=== PATIENT | male | born 1960 | race Caucasian/White ===

== ENCOUNTER → 2017-06-13 | Outpatient (CLI) | payer OTHER ==
[2017-06-13 17:32] LABS: Basophils % (A) 1 %; CH 32.5; CHCM 33.9; Eosinophils # (A) 0.2 k/uL (0-0.7); Eosinophils % (A) 5 %; HCT 46.3 % (39.0-53.0); HDW 2.45; HGB 15.8 gm/dL (13.0-17.5); Luc # (Auto) 0.11; Luc % (Auto) 2; Lymphocytes # (A) 1.1 k/uL (1.0-4.8); Lymphocytes % (A) 23 %; MCH 32.9 pg (25.0-35.0); MCHC 34.1 g/dL (31.0-37.0); MCV 96.4 fL (80.0-100.0); Mean Platelet Volume 6.9; Monocytes # (A) 0.3 k/uL (0-1.0); Monocytes % (A) 7 %; Neutrophils # (A) 2.9 k/uL (1.3-7.7); Neutrophils % (A) 62 %; RDW 13.1 % (11.5-15.5); WBC 4.7 k/uL (3.8-10.6); WBC (Perox) 4.77
[2017-06-13 17:38] LABS: Calcium 9.3 mg/dL (8.4-10.2); Potassium 4.6 mmol/L (3.5-5.1); Uric Acid 7.2 mg/dL (3.5-8.5)
== END | disposition home or self-care (01) ==
LOC: LABWHC1 16:42
PROVIDERS: ATTEND Nurse Practitioner Family
DX: M10.9 Gout, unspecified (principal); N39.0 Urinary tract infection, site not specified; D63.1 Anemia in chronic kidney disease; N18.3 Chronic kidney disease, stage 3 (moderate); E83.39 Other disorders of phosphorus metabolism
CPT/HCPCS: 36415; 80048; 82306; 82570; 83970; 84156; 84550; 85025

== ENCOUNTER 2017-11-07 07:25 | Day surgery (SDC) | payer OTHER ==
[2017-11-02 16:07] VITALS: BMI 29.9
[~2017-11-07 07:25] MED LIST: LACTATED RINGERS 1,000 ML IV SCH
[2017-11-07 07:41] VITALS: RESP 18; TEMP 97.9
[2017-11-07] MEDS ORDERED: LACTATED RINGERS 1,000 ML IV ONE ×2 (07:43)
[2017-11-07] MEDS ORDERED: PROPOFOL 10 MG/ML 20 ML VIAL IV ONE (08:08)
--- NOTE | 2017-11-07 08:42 | P.PCN ---
Date of Procedure: 11/07/17 Procedure(s) Performed: Procedure: Total colonoscopy. Preoperative diagnosis: Screening for neoplasia. Postoperative diagnosis: Diverticulosis with no evidence of acute diverticulitis , strictures, polyps or cancer. Preparation HalfLytely prep. Sedation: Was provided by anesthesia. Brief clinical history: The patient is a 57-year-old male who is scheduled for this evaluation for screening for neoplasia age being his risk factor. He had a prior exam more than 10 years ago. The patient has no abdominal complaints, bleeding or anemia. Procedure: With the patient on his left lateral decubitus position and after informed consent and adequate sedation, the perianal area was inspected and it did not show any fissures or fistulas. There were no masses felt on digital rectal examination. The Olympus CFQ 160L video colonoscope was then inserted in the rectum in the usual fashion and advanced to the cecum. There were multiple diverticular orifices seen scattered mostly on the left side with few around the hepatic flexure and on the right side but no evidence of acute diverticulitis or strictures. The mucosa appeared healthy. No polyps or tumors were seen. I retroflexed the endoscope in the rectum before the endoscope was withdrawn. The patient tolerated the procedure well. Plan: The patient was reassured. Discussed dietary measures. He will follow up with you as planned and I recommended repeat exam in 10 years.
[2017-11-07 09:15] VITALS: BP 125/77; PULSE 75
== END 2017-11-07 09:23 | disposition home or self-care (01) ==
LOC: ORWHC2ENDO 07:25
DX: Z12.11 Encounter for screening for malignant neoplasm of colon (principal); K57.30 Diverticulosis of large intestine without perforation or abscess without bleeding; I10 Essential (primary) hypertension; E78.5 Hyperlipidemia, unspecified; K21.9 Gastro-esophageal reflux disease without esophagitis; M19.90 Unspecified osteoarthritis, unspecified site; Z79.899 Other long term (current) drug therapy
CPT/HCPCS: J2704; G0121

== ENCOUNTER → 2019-08-24 | Outpatient (CLI) | payer OTHER ==
--- NOTE | 2019-08-24 18:04 | US ---
EXAMINATION TYPE: US kidneys/renal and bladder DATE OF EXAM: 08/24/2019 COMPARISON: NONE CLINICAL HISTORY: I12.9 Hypertensive chronic kidney disease. CKD, left kidney removed 2013 EXAM MEASUREMENTS: Right Kidney: 11.5 x 5.9 x 5.6 cm Right Kidney: 3.0 x 2.0 x 2.8cm complex area inferior pole Left Kidney: surgically absent Bladder: wnl Bilateral Jets seen: right jet seen No hydronephrosis or nephrolithiasis. Bladder has a normal appearance. IMPRESSION: There is a 3 cm complex area involving the lower pole of the right kidney which MRI scan is recommend ed underlying neoplasm not excluded.
== END | disposition home or self-care (01) ==
LOC: RADUSWWP 15:55
PROVIDERS: ATTEND Internal Medicine Nephrology
DX: R93.421 Abnormal radiologic findings on diagnostic imaging of right kidney (principal)
CPT/HCPCS: 76770

== ENCOUNTER → 2019-08-25 | Outpatient (CLI) | payer OTHER ==
[2019-08-25 09:10] LABS: Appearance,Urine Clear (Clear); Bilirubin,Urine Negative (Negative); Blood,Urine Negative (Negative); Color,Urine Yellow; Glucose,Urine (UA) Negative (Negative); Ketones,Urine Negative (Negative); Leukocyte Esterase,Urine Negative (Negative); Nitrite,Urine Negative (Negative); Protein,Urine Negative (Negative); Specific Gravity,Urine 1.015 (1.001-1.035); Urobilinogen,Urine <2.0 mg/dL (<2.0)
[2019-08-25 09:15] LABS: Basophils % (A) 1 %; Eosinophils # (A) 0.3 k/uL (0-0.7); Eosinophils % (A) 10 %; HCT 45.7 % (39.0-53.0); Lymphocytes # (A) 0.9 k/uL (1.0-4.8); Lymphocytes % (A) 26 %; MCH 32.6 pg (25.0-35.0); MCHC 35.1 g/dL (31.0-37.0); MCV 92.9 fL (80.0-100.0); Mean Platelet Volume 7.2; Monocytes # (A) 0.2 k/uL (0-1.0); Monocytes % (A) 7 %; Neutrophils # (A) 1.8 k/uL (1.3-7.7); Neutrophils % (A) 53 %; Platelet Count 157 k/uL (150-450); RBC 4.92 m/uL (4.30-5.90); RDW 12.4 % (11.5-15.5); WBC 3.3 k/uL (3.8-10.6)
[2019-08-25 17:21] LABS: Ferritin 78.8 ng/mL (22.0-322.0)
[2019-08-25 17:32] LABS: % Iron Saturation 54.33 (15.00-50.00); African American GFR (CKD) 57.4 (60.0-200.0); Albumin/Globulin Ratio 1.74 (1.60-3.17); Anion Gap 5.1 mmol/L (4.00-12.00); BUN/Creat Ratio 10.67 Ratio (12.00-20.00); Calcium 9.1 mg/dL (8.7-10.3); Carbon Dioxide 28.9 mmol/L (21.6-31.8); Chol/HDL Ratio 3.82; Globulin 2.3 g/dL (1.6-3.3); LDL Cholesterol,Calculated 83.2 mg/dL (0.0-131.0); Magnesium 1.8 mg/dL (1.5-2.4); Non-African American GFR(CKD) 49.5 (60.0-200.0); Phosphorus 3.3 mg/dL (2.4-5.1); Potassium 4.2 mmol/L (3.5-5.5); Total Bilirubin 0.7 mg/dL (0.3-1.2); Total Protein 6.3 g/dL (6.2-8.2); Uric Acid 7.6 mg/dL (3.7-8.7); VLDL Calculation 23.8 mg/dL (5.00-40.00)
[2019-08-25 18:41] LABS: Hemoglobin A1C 5.6 % (4.0-6.0)
== END | disposition home or self-care (01) ==
LOC: LABWHC1 08:04
PROVIDERS: ATTEND Nurse Practitioner Family
DX: Z00.00 Encounter for general adult medical examination without abnormal findings (principal)
CPT/HCPCS: 36415; 80053; 80061; 81003; 82306; 82728; 83036; 83540; 83550; 83735; 83970; 84100; 84153; 84550; 85025

== ENCOUNTER → 2019-11-02 | Outpatient (CLI) | payer OTHER | END | disposition home or self-care (01) | LOC: RADMRIMAIN 16:38 | PROVIDERS: ATTEND Urology | DX: Z53.9 Procedure and treatment not carried out, unspecified reason (principal) ==

== ENCOUNTER → 2023-09-05 | Outpatient (CLI) | payer MEDICARE ==
--- NOTE | 2023-09-09 17:52 | MR ---
EXAMINATION TYPE: MR knee RT wo con DATE OF EXAM: 09/05/2023 COMPARISON: Outside radiograph 08/30/2023 HISTORY: 63-year-old male M25.561, right outer knee pain for two weeks after carrying heavy object TECHNIQUE: Multiplanar, multisequence imaging of the right knee is performed without IV contrast. FINDINGS: The ACL, PCL, and MCL are intact. Some heterogeneity to the femoral attachment of the LCL proper. Additional inhomogeneous signal of th e popliteus tendon. LCL complex otherwise intact. There is a through thickness posterior root tear of the medial meniscus with oblique tear extending t hroughout the posterior horn to the junction with the medial meniscal body. Meniscal cysts at the pos terior root insertion measuring up to 6 mm and some reactive bone marrow edema within the tibia. There is a subtle cartilage fissure along the mid weightbearing aspect of the medial femoral condyle articular cartilage, sagittal image 11 and 12 but otherwise overall preserved medial compartment kuldip cular cartilage volume. There is a partially discoid lateral meniscus which remains intact. Overall lateral compartment artic ular cartilage volume is maintained. Moderate irregular cartilage loss along the medial trochlear facet with subchondral cystic change. Mi ld irregular cartilage thinning along the mid patellar articular cartilage. Mild anterior soft tissue swelling. Extensive mechanism is intact. Yktzg-jr-mzjerbhc knee joint effus ion and mild chronic synovitis. No sizable Clarke's cyst. Normal popliteal artery anatomy and muscle bulk. No suspicious bone marrow replacement. IMPRESSION: 1. Through thickness posterior root tear of the medial meniscus with an oblique tear extending throug hout the posterior horn to the junction with the medial meniscal body. Reactive osseous edema at the root insertion. 2. Grade 1 sprain femoral attachment of the LCL proper and mild contusion of the popliteus tendon. 3. Mild patellofemoral compartmental OA. 4. Suspect a subtle nondisplaced cartilage fissure/cartilage flap along the mid weightbearing aspect of the medial femoral condyle articular cartilage. 5. Nfzrq-mj-fknnlolt knee joint effusion with mild chronic synovitis.
== END | disposition home or self-care (01) ==
LOC: RADMRIMAIN 07:03
PROVIDERS: ATTEND Orthopaedic Surgery
DX: M23.321 Other meniscus derangements, posterior horn of medial meniscus, right knee (principal); M17.11 Unilateral primary osteoarthritis, right knee; M23.641 Other spontaneous disruption of lateral collateral ligament of right knee; M25.461 Effusion, right knee; M67.863 Other specified disorders of tendon, right knee; M67.861 Other specified disorders of synovium, right knee

== ENCOUNTER 2023-10-19 07:49 | Day surgery (SDC) | payer MEDICARE ==
[2023-10-12 16:11] VITALS: BMI 32.3
--- NOTE | 2023-10-18 21:25 | HP ---
HISTORY AND PHYSICAL DATE OF SURGERY: 10/19/2023. HISTORY OF PRESENT ILLNESS: Giuliano Swain is a 63-year-old gentleman seen with progressive right knee pain. We discussed options regarding treatment. He elected to proceed with right knee arthroscopy. Consent was obtained. PAST MEDICAL HISTORY: Hyperlipidemia, hypertension, gastroesophageal reflux disease. PAST SURGICAL HISTORY: Kidney surgery. DAILY MEDICATIONS: 1. Amlodipine. 2. Lisinopril. 3. Omeprazole. 4. Simvastatin. 5. Tylenol. ALLERGIES: None. SOCIAL HISTORY: Denies tobacco use. PHYSICAL EVALUATION OF THE RIGHT KNEE: Range of motion is 0 to 130 degrees. Mild effusion. Tenderness, medial joint line. Crepitus, medial patellofemoral compartments with range of motion. Pain with patellofemoral compression. IMAGING STUDIES: X-rays of the right knee revealed mild osteoarthritis. MRI of right knee revealed medial meniscal tear, osteochondral defect of the medial femoral condyle and effusion. IMPRESSION: 1. Internal derangement of right knee with medial meniscal tear. 2. Right knee medial femoral condyle osteochondral tear/defect. 3. Hypertension. 4. Hyperlipidemia. 5. Gastroesophageal reflux disease. PLAN: Right knee arthroscopy with partial medial meniscectomy, microfracture medial femoral condyle and debridement. MMODL / IJN: [id number] /
[~2023-10-19 07:49] MED LIST changes: +DEXAMETHASONE SOD PHOSPHATE 4 MG/ML 1 ML VIAL IV ONE; +HYDROmorphone 0.5 MG/0.5 ML SYRINGE IVP PRN; +ONDANSETRON 4 MG/2 ML VIAL IVP ONE
[2023-10-19] MEDS ORDERED: HYDROmorphone (PF) 1 MG/ML ONE (09:37)
[2023-10-19] MEDS ORDERED: KETOROLAC 15 MG/ML 1 ML VIAL ONE (09:37)
[2023-10-19] MEDS ORDERED: LIDOCAINE 1% INJ 10MG/ML (20 ML MDV) ONE (09:37)
[2023-10-19] MEDS ORDERED: MIDAZOLAM 2 MG/2 ML VIAL ONE (09:37)
[2023-10-19] MEDS ORDERED: PROPOFOL 10 MG/ML 20 ML VIAL IV ONE (09:37)
[2023-10-19] MEDS ORDERED: fentaNYL (PF) 50 MCG/ML 2 ML AMP ONE (09:37)
[2023-10-19] MEDS ORDERED: BUPIVACAINE (PF) 0.25% 30 ML VIAL SQ ONE ×2 (09:58→10:12)
--- NOTE | 2023-10-19 10:28 | P.OP ---
Date of Procedure: 10/19/23 Preoperative Diagnosis: Internal derangement right knee Postoperative Diagnosis: 1. Tear medial and lateral meniscus right knee 2. Grade IV chondromalacia medial femoral condyle right knee 3. Grade II/III chondromalacia patella right knee 4. Reactive synovitis medial, lateral and suprapatellar compartments right knee Procedure(s) Performed: 1. Arthroscopic partial medial and lateral meniscectomy right knee 2. Arthroscopic microfracture medial femoral condyle right knee 3. Arthroscopic partial synovectomy medial, lateral and suprapatellar compartments right knee 4. Arthroscopic chondroplasty medial femoral condyle right knee 5. Arthroscopic chondroplasty patella right knee Anesthesia: AVRILA, local Surgeon: Mike Wolfe Estimated Blood Loss (ml): 5 Pathology: none sent Condition: stable Disposition: PACU Indications for Procedure: 63-year-old gentleman who was seen with progressive right knee pain. After treatment options were discussed, he elected to proceed with arthroscopy. Operative Findings: See description of procedure Description of Procedure: Patient was taken to the operative suite. Patient underwent a general anesthetic by the department of anesthesia. Patient was given preoperative an tibiotics. The right lower extremity was placed in a well-padded arthroscopic leg he. The right leg was prepped and draped in the normal sterile orthopedic fashion. A lateral parapatellar and suprapatellar incision was made. Trochars were inserted. Arthroscopy was initiated. Suprapatellar pouch revealed diffuse thick reactive synovitis. The patellofemoral joint appeared to articular congruently. There was grade II/III chondromalacia of the patella with some osteochondral flap tears present. The scope was guided into the medial gutter. No loose bodies or plica were identified. The scope was then guided into the medial compartment. A medial parapatellar incision was made. Trocar inserted followed by probe. There was a complex tear of the medial meniscus involving the posterior horn and root. There were grade III/IV chondromalacia changes of the medial femoral condyle with large osteochondral flap tears present. There was thick reactive synovitis anteriorly. I performed a partial medial meniscectomy getting down to stable meniscal tissue. I performed a chondroplasty of the medial femoral condyle getting down to stable osteochondral tissue. I performed a partial synovectomy decompressing the reactive centimeters anteriorly. I did note an area of exposed bone weightbearing surface medial femoral condyle measuring just under a centimeter in diameter. I do some microfracture awl and I performed a microfracture to that area penetrating the bone with resultant bleeding at the microfracture site. The residual meniscus was stable. The residual osteochondral surface was stable. There was good decompression of the synovitis. Scope and probe were then guided into the intercondylar notch. Cruciates were identified, probed and found to be stable. The scope and probe were then guided into lateral compartment. There was a radial tear mid body lateral meniscus. There were grade I chondromalacia changes lateral compartment with no tears. There was thi ck reactive synovitis anteriorly. I performed a partial lateral meniscectomy getting down to stable meniscal tissue. I performed a partial synovectomy decompressing the reactive synovitis. The residual meniscus was stable. There was good decompression of the synovitis. The scope was in guided back into the suprapatellar compartment. I introduced a motorized shaver into the suprasellar compartment. I debrided some piecemeal fragments of meniscus the encounter. I performed a chondroplasty of the patella getting down to stable osteochondral tissue. I performed a partial synovectomy decompressing the reactive synovitis. The residual osteochondral surface of the patella was stable. There was good decompression of the synovitis. Instruments were now removed from the joint. The joint was infiltrated with .25% Marcaine. Steri-Strips were applied to the portal sites. Sterile dressings were applied. The patient was placed into a ONDINA hose. No tourniquet was utilized. The patient was awakened, transferred to a bed and taken to recovery stable satisfactory condition.
[2023-10-19 10:30] VITALS: TEMP 97.2
[2023-10-19] MEDS ORDERED: HYDROcodone/APAP 5-325MG 1 EACH TAB ONE (11:01)
[2023-10-19] MEDS ORDERED: HYDROcodone/APAP 5-325MG 1 EACH TAB PO ONE (11:03)
[2023-10-19 11:27] VITALS: BP 135/91; PULSE 71; RESP 18
== END 2023-10-19 11:58 | disposition home or self-care (01) ==
LOC: OR 07:49
PROVIDERS: ATTEND Orthopaedic Surgery
DX: S83.281A Other tear of lateral meniscus, current injury, right knee, initial encounter (principal); S83.241A Other tear of medial meniscus, current injury, right knee, initial encounter; M22.41 Chondromalacia patellae, right knee; M65.861 Other synovitis and tenosynovitis, right lower leg; I10 Essential (primary) hypertension; E78.5 Hyperlipidemia, unspecified; K21.9 Gastro-esophageal reflux disease without esophagitis; Z79.899 Other long term (current) drug therapy; Z98.890 Other specified postprocedural states; X58.XXXA Exposure to other specified factors, initial encounter
CPT/HCPCS: 29880; 29879; J2250; J1100; J0690; J2405; J2001; J3010; J1170; J1885; J2704; J0665

== ENCOUNTER → 2024-01-12 | Outpatient (CLI) | payer MEDICARE ==
--- NOTE | 2024-01-18 19:26 | CT ---
EXAMINATION TYPE: CT pelvis wo/w con CT DLP: 2132.10 mGycm, Automated exposure control for dose reduction was used. DATE OF EXAM: 01/12/2024 1:58 PM COMPARISON: None. CLINICAL INDICATION:Male, 63 years old with history of C61 PROSTATE CANCER N50.82 SCROTAL PAIN; RECE NT PROSTATE CA AND REMOVAL. SCROTAL PAIN. HX OF 1 KIDNEY TECHNIQUE: Axial CT pelvis wo/w con;Sagittal and [facility]. Contrast used:70ML mL of Isovue 300 without and with IV Contrast, (none if empty) Oral contrast used: without Oral Contrast (none if empty) FINDINGS: LOWER CHEST: Unremarkable PELVIS BLADDER: Unremarkable REPRODUCTIVE: Prostate is not definitely identified likely related to resection as stated in the hist ory. Bilateral seminal vesicles are enlarged and cystic in appearance versus postoperative seromas ve rsus lymphoceles. ABDOMEN & PELVIS STOMACH AND BOWEL: No evidence of bowel obstruction. PERITONEUM/RETROPERITONEUM: No evidence of pneumoperitoneum or free fluid. VASCULATURE: No evidence of aortic aneurysm. MUSCULOSKELETAL: No acute osseous abnormalities LYMPH NODES: No gross evidence for lymphadenopathy. SOFT TISSUE/ABDOMINAL WALL: Left inguinal hernia. IMPRESSION: 1. Bilateral seminal vesicles are enlarged and cystic in appearance versus postoperative seromas ve rsus lymphoceles.
== END | disposition home or self-care (01) ==
LOC: RADCTMAIN 12:53
PROVIDERS: ATTEND Surgery
DX: C61 Malignant neoplasm of prostate (principal); N50.82 Scrotal pain; Z90.79 Acquired absence of other genital organ(s)
CPT/HCPCS: 72194; Q9967